=== PATIENT | male | born 2000 | race Caucasian/White ===

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

== ENCOUNTER 2021-02-25 05:29 | Emergency (ER) | payer OTHER ==
[~2021-02-25] VITALS: Ht 170.2 cm; Wt 57.6 kg
[2021-02-25] MEDS ORDERED: NAPROXEN375 MG PO (07:50)
[2021-02-25] MEDS ORDERED: AMOX-CLAV 875-1 EACH PO (07:50)
[2021-02-25] MEDS ORDERED: INTESTINEX680 M1 PO (07:50)
[2021-02-25] MEDS ORDERED: HYDROCORTISONE15 G3 TOP (07:53)
== END 2021-02-25 08:24 | disposition home or self-care (01) ==
LOC: ER 05:29
DX: H66.91 Otitis media, unspecified, right ear (principal); H92.01 Otalgia, right ear